=== PATIENT | male | born 1935 | race Caucasian/White ===

== ENCOUNTER 2016-08-03 10:30 | Outpatient (CLI) | payer MEDICAID ==
[2016-08-03 11:48] LABS: Blood Urea Nitrogen 15 mg/dL (9-20)
[2016-08-03] MEDS ORDERED: NACL ONE (13:17)
--- NOTE | 2016-08-03 15:17 | Cat Scan Report ---
CT scan of chest abdomen and pelvis following injection of contrast: History: Malignant neoplasm of prostate. Findings: No endobronchial or mediastinal mass. No mediastinal, hilar or axillary adenopathy. Small lymph nodes identified in the mediastinum probably reactive. No pleural pericardial effusion. Ill-defined density right middle lobe extending from the right hilum to the periphery. Faint interstitial densities right and left lower lobe. Tiny calcified granuloma left lung Normal liver with left lobe extension up to the spleen. Normal spleen. Small calculi in gallbladder. Normal pancreas. Normal adrenals and kidney parenchyma and bladder. No free intraperitoneal fluid or air. No evidence of adenopathy. 2 the sclerotic abdomen but without aneurysm. Gaseous colon with moderate volume stool in colon. No evidence of appendicitis or diverticulitis. Impression: Linear densities right lung and interstitial densities lower lobes probably suggestive of pneumonitis and/or segmental atelectasis. Tiny calculi gallbladder. Left inguinal hernia containing fat measuring 2.5 cm in diameter. Smaller right inguinal hernia.
--- NOTE | 2016-08-05 12:03 | Nuclear Medicine Report ---
BONE SCAN: HISTORY: Malignant neoplasm of prostate. COMPARISON: CT chest, abdomen and pelvis performed the same day. Bone scan imaging demonstrates numerous areas of abnormal increased radiotracer uptake consistent with metastatic disease. Abnormal uptake is identified in the calvarium, spine, bilateral humeri, pelvis, bilateral femurs and bilateral tibia. These areas are sclerotic on CT performed the same day. 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
== END 2016-08-03 10:31 | disposition home or self-care (01) ==
LOC: EDSEX 10:30 → NM 10:30
PROVIDERS: ATTEND Internal Medicine Hematology
DX: C79.51 Secondary malignant neoplasm of bone (principal); C61 Malignant neoplasm of prostate; J84.10 Pulmonary fibrosis, unspecified; K80.20 Calculus of gallbladder without cholecystitis without obstruction; K40.90 Unilateral inguinal hernia, without obstruction or gangrene, not specified as recurrent
CPT/HCPCS: 36415; 71260; 74177; 78306; 82565; 84520; A9503; Q9967

== ENCOUNTER 2017-06-28 09:26 | Outpatient (CLI) | payer MEDICAID ==
[2017-06-28 10:43] LABS: Blood Urea Nitrogen 9 mg/dL (9-20)
--- NOTE | 2017-07-01 08:57 | Magnetic Resonance Report ---
MR THORACIC SPINE WITH AND WITHOUT CONTRAST MR LUMBAR SPINE WITH AND WITHOUT CONTRAST HISTORY: Back pain with radiation to legs, prostate cancer. TECHNIQUE: Multisequence, multiplanar MRI before and after IV gadolinium. COMPARISON: CT chest abdomen and pelvis and bone scan performed 08/03/16. FINDINGS: There is normal height and alignment of the thoracic and lumbar vertebral bodies. There is no evidence for fracture, malalignment or focal bone lesion. There is however diffuse abnormal bone marrow signal. There is decreased T1 and T2 signal throughout all bony structures visualized. The bony structures are diffusely sclerotic on CT performed 08/03/16. This appears to represent some marrow infiltration process. This could represent diffuse metastatic disease to the bones. Other etiologies such as fibrosis or renal osteodystrophy could be considered. Please correlate with the patient's clinical history and presentation. The thoracic spinal cord is normal size and signal intensity throughout. The conus terminates at the L1 level. The cauda equina is unremarkable. There is no evidence for significant bulging disc, herniation or central canal stenosis. Disc space height appears within normal limits. The posterior elements are intact with minimal facet arthropathy in the lumbar region. The paraspinal soft tissues are within normal limits. No abnormal enhancement after IV gadolinium was demonstrated. IMPRESSION: No evidence for central canal stenosis, bulging disc or herniation. No nerve impingement is identified. Minimal spondylosis. There is diffuse abnormal bony signal throughout the visualized osseous structures as outlined above. I suppose diffuse metastatic disease could be considered. Other sclerotic bone diseases should also be considered.
== END 2017-06-28 09:27 | disposition home or self-care (01) ==
LOC: MRI 09:26
PROVIDERS: ATTEND Internal Medicine Hematology & Oncology
DX: C61 Malignant neoplasm of prostate (principal); R93.8 Abnormal findings on diagnostic imaging of other specified body structures; M12.88 Other specific arthropathies, not elsewhere classified, other specified site; M47.895 Other spondylosis, thoracolumbar region
CPT/HCPCS: 36415; 72157; 72158; 82565; 84520; A9577

== ENCOUNTER 2017-07-05 07:02 | Outpatient (CLI) | payer MEDICAID ==
--- NOTE | 2017-07-05 13:43 | Magnetic Resonance Report ---
MRI BRAIN WITHOUT AND WITH CONTRAST: 07/05/17 07:45:00 CLINICAL: Prostate cancer, intermittent confusion and abnormal gait TECHNIQUE: Axial diffusion, T1, FLAIR, gradient echo T2*, and coronal and axial T2 and sagittal T1 plus coronal and axial postcontrast T1 sequences on a 1.5 Brielle magnet. 12.0 cc of Multihance was injected intravenously for the contrast portion of the exam. Consent was obtained prior to the administration of contrast. FINDINGS: The ventricles and sulci are normal for age. No restricted diffusion. Several enhancing lesions. A 4 mm posterior left frontal lobe lesion with minimal vasogenic edema and no mass effect. A 1.7 x 1.3 x 1.7 cm right posterior cerebellar mass abuts the dura but has adjacent T2 hyperintense signal consistent with vasogenic edema. This lesion produces no significant mass effect. A 5 mm enhancing ring lesion of the right cerebellum and a 3 mm enhancing lesion of the vermis slightly to the left of midline. No hemorrhage, edema or extra-axial collection. Mild bilateral multifocal deep white matter hyperintensities on FLAIR and T2. Normal pituitary and optic chiasm. Intact vascular flow voids. Left maxillary sinusitis with near complete opacification of the sinus. The rest of the sinuses are clear. The orbits and soft tissues are normal. Normal calvarium and skull base. IMPRESSION: 1. 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 2. A 1.7 cm right cerebellar lesion is probably a metastasis since it has adjacent vasogenic edema. Without the edema, hemangioma would also be a consideration. A verbal report of these findings was given to Dr. He on 07/05/17 at 1:30 o'clock.
== END 2017-07-05 07:03 | disposition home or self-care (01) ==
LOC: MRI 07:02
PROVIDERS: ATTEND Internal Medicine Hematology
DX: C79.31 Secondary malignant neoplasm of brain (principal); C61 Malignant neoplasm of prostate; J32.0 Chronic maxillary sinusitis; G31.89 Other specified degenerative diseases of nervous system; R26.9 Unspecified abnormalities of gait and mobility; R41.0 Disorientation, unspecified
CPT/HCPCS: 70553; A9577